=== PATIENT | male | born 1985 | race Caucasian/White ===

== ENCOUNTER → 2022-10-13 | Outpatient (CLI) | payer SELFPAY ==
--- NOTE | 2022-10-13 10:30 | VAS_PTH ---
PATIENT: KACIE HODGE Jr. LOC: [facility] U#:[id number] AGE/SX: 37/M ROOM: RE10/13/[address]: Dr. Rosales Chang MD : [id number] BED: DIS: 10/13/2022 SPEC #: [id number] RECD: 10/13/22 13:42 STATUS: ALTHEA KIMBERLEE #: [id number] VINCE: 10/13/22 10:[address]: Rosales Chang DEPT: SURGICAL PATHOLOGY RECD BY: Pat Paz Tissues: A - Vas deferens, NOS B - Vas deferens, NOS Procedures: Surgery Specimen Level II HEADER OPERATION: Bilateral partial vasectomy PRE-OP DIAGNOSIS: Sterilization TISSUE SUBMITTED: A ? Right vas deferens, B ? Left vas deferens MICROSCOPIC DIAGNOSIS A. Right vas deferens, partial vasectomy: Completely transected segment of vas deferens, no pathologic diagnosis. B. Left vas deferens, partial vasectomy: Completely transected segment of vas deferens, no pathologic diagnosis. YASH:roger 10/14/2022 MICROSCOPIC DESCRIPTION Slides are reviewed. GROSS DESCRIPTION A - Received is one container designated right vas deferens. The specimen consists of a tubular segment of storey soft tissue measuring 1.2 cm in length and 0.2 cm in diameter. The specimen is sectioned and submitted entirely in one cassette. B - Received is one container designated left vas deferens. The specimen consists of a tubular segment of storey soft tissue measuring 1 cm in length and 0.2 cm in diameter. The specimen is sectioned and submitted entirely in one cassette. / YASH:roger 10/13/2022 TC:4 CPT: 40228 x2
== END | disposition home or self-care (01) ==
LOC: LABSPEC 14:06
PROVIDERS: Visit Provider Surgery
DX: Z30.2 Encounter for sterilization (principal)
CPT/HCPCS: 88302